=== PATIENT | male | born 1955 | race Caucasian/White ===

== ENCOUNTER → 2024-03-11 07:36 | Outpatient (REF) | payer OTHER, SELFPAY | LOC: EMG 07:36 | PROVIDERS: ATTENDING PHYSICIAN Psychiatry & Neurology Neurology; FAMILY PHYSICIAN Family Medicine | DX: R20.0 Anesthesia of skin (principal) | CPT/HCPCS: 95886; 95912 ==

== ENCOUNTER → 2024-03-12 07:33 | Outpatient (REF) | payer OTHER, SELFPAY | LOC: EMG 07:33 | PROVIDERS: ATTENDING PHYSICIAN Psychiatry & Neurology Neurology; FAMILY PHYSICIAN Family Medicine | DX: R20.0 Anesthesia of skin (principal) | CPT/HCPCS: 95886; 95910 ==

== ENCOUNTER 2024-04-19 09:13 | Emergency (ER) | payer OTHER, SELFPAY ==
[2024-04-19 09:18] VITALS: BP 171/95
[2024-04-19 09:47] LABS: ALT (SGPT) 36 U/L (0-50); AST (SGOT) 46 U/L (17-59); Alkaline Phosphatase 77 U/L (38-126); Blood Urea Nitrogen 19 mg/dl (9-20); Calcium 8.5 mg/dl (8.4-10.2); Carbon Dioxide 27 mmol/L (22-30); Chloride 102 mmol/L (98-107); Glucose 137 mg/dl (70-99); Potassium 4.4 mmol/L (3.5-5.1); Sodium 137 mmol/L (135-145); Total Bilirubin 0.5 mg/dl (0.2-1.3); Total Protein 7.1 g/dl (6.3-8.2); eGFR > 60.00
[2024-04-19 09:55] LABS: % Basophils 0.3 % (0-2); % Eosinophils 0.9 % (0-6); % Immature Granulocytes 0.2 % (0-0.5); % Lymphocytes 40.9 % (20.5-51.1); % Monocytes 7.7 % (1.7-9.3); Absolute Eosinophils 0.1 10^3/uL (0-0.7); Absolute Lymphocytes 2.3 10^3/uL (1.2-3.4); Absolute Monocytes 0.4 10^3/uL (0.1-0.6); Absolute Neutrophils 2.9 10^3/uL (1.4-6.5); Hemoglobin 12.6 g/dL (13.0-18.0); Mean Corpuscular Hgb 21.2 pg (27.0-31.0); Mean Corpuscular Volume 70.8 fL (80.0-94.0); Mean Platelet Volume 8.6 fL (7.4-10.4); Nucleated Red Blood Cells % 0 % (-); Platelet Count 327 10^3/uL (130-400); Red Blood Cell Count 5.93 10^6/uL (4.70-6.10); Red Cell Dist. Width 15.6 % (11.5-14.5); White Blood Cell Count 5.7 10^3/uL (4.8-10.8)
[2024-04-19 10:03] VITALS: BMI 28.7
[2024-04-19 10:06] VITALS: BP 165/85
--- NOTE | 2024-04-19 10:23 | ED.GENMED ---
History of Present Illness
General
Chief Complaint: Dizziness
Source: patient
Exam Limitations: none
Time Seen by Provider: 04/19/24 09:54
Travel History
Have you had any contact with someone who has COVID-19?: No
Do you have any symptoms of coronavirus? Fever > 100 degrees, chills, cough, shortness of breath, sore throat, loss of taste or smell, muscle aches, or headache?: No
History of Present Illness
History of Present Illness:
69-year-old male with history of hypertension hyperlipidemia presents with the onset of dizziness overnight last night. He states he rolled over in bed from his left side to his right side and he had a significant spinning sensation with nausea.
He sat still and it went away. He did this again later in the morning and similar symptoms occurred. He notes that his dizziness is made worse with position change and tends to fade away if he stays still. He notes a slight headache. He had a
viral rash several days ago. No fevers chest pain shortness of breath abdominal pain. No unilateral numbness or weakness.
Phy Exam
Physical Exam
Physical Exam:
General: Well-appearing male no acute respiratory distress
HEENT: Normocephalic atraumatic right external auditory canal occluded with cerumen left external auditory canal and TM are normal pupils are equal round reactive to light there is subtle horizontal nystagmus noted upon extraocular motions
Heart: Regular rate and rhythm no murmurs
Lungs: Clear to auscultation bilaterally
Neurologic exam normal gait finger-nose [id number] intact no drift on exam. Pk-Hallpike maneuver with significant dizziness more so on the right. There is notable nystagmus noted in the horizontal direction. This tends to fade after about 10
seconds
Skin: Warm no rash or lesion
Course
Orders/Labs/Results
Orders:
Orders
04/19/24 09:22
EKG [Electrocardiogram (*1)] Urgent
Reason for Study: Vertigo / Dizzy
04/19/24 09:23
EKG- Treatment ONCE
04/19/24 09:29
Complete Blood Count/With Diff Urgent
Comprehensive Metabolic Panel Urgent
04/19/24 10:12
PT Consult [Pt Eval And Treat] Urgent
Treatment: vestibular eval
Activity Level: Ambulate
04/19/24 12:44
Meclizine [Antivert] 25 mg PO NOW STA
Abnormal Lab Results
04/19/24
09:29
Hgb 12.6 L g/dL
(13.0-18.0)
MCV 70.8 L fL
(80.0-94.0)
MCH 21.2 L pg
(27.0-31.0)
MCHC 30.0 L g/dL
(33.0-37.0)
RDW 15.6 H %
(11.5-14.5)
Creatinine 0.6 L mg/dL
(0.7-1.3)
Glucose 137 H mg/dl
(70-99)
04/19/24 09:29
04/19/24 09:29
Vital Signs
Initial and Last Documented VS:
Initial Vital Signs
Temp Pulse Resp BP Pulse Ox
98.4 F 71 18 171/95 98
04/19/24 09:18 04/19/24 09:18 04/19/24 09:18 04/19/24 09:18 04/19/24 09:18
Last Documented Vital Signs
Temp Pulse Resp BP Pulse Ox
98.4 F 71 18 165/85 98
04/19/24 09:18 04/19/24 10:06 04/19/24 10:06 04/19/24 10:06 04/19/24 10:06
MDM/Problems Addressed
Differential Diagnosis Includes:
Patient with dizziness. Seems to be positional. Suspect vertigo peripherally because. No unilateral deficit otherwise. Labs ordered through triage which have been reviewed. Consult physical therapy for vestibular eval
*Critical Care Note
Total Time (30-74mins, 75-104mins- exclusive of procedures): Not Applicable
Update Note
Update Note:
Patient evaluated by physical therapy they agree with this no vertigo they were able to narrow down to the left lateral canal. They feel he would benefit from outpatient vestibular rehab. He was given meclizine here. He is stable for discharge.
Do not suspect CVA
ED Attending Note
-
Portions of this chart may have been created with voice recognition software.� Occasional wrong word or��sound alike� substitutions may have occurred due to the inherent limitations of voice recognition software.
Discharge Plan
Departure
Patient Disposition: Home (Routine Discharge)
Date of Disposition: 04/19/24
Time of Disposition: 12:45
Patient with high blood pressure during this ER visit?: No
Discharge Problem:
Vertigo
Instructions: Vertigo (a Type of Dizziness) (DC)
Prescriptions:
New
meclizine 25 mg tablet
25 mg PO TID PRN (Reason: dizziness) Qty: 10 0RF
Activity Restrictions/Additional Instructions:
Use meclizine if needed for dizziness. Please follow-up with vestibular therapist for further treatment. If worse otherwise
Interventions
Interventions:
*Risk Screen - Suicide Last Done: 04/19/24 09:18
*General Assessment Last Done: 04/19/24 09:18
*Neglect/Abuse Screening Last Done: 04/19/24 09:18
ED- Fall Risk Assessment Last Done: 04/19/24 10:03
*ED COVID-19 Vaccine History Last Done: 04/19/24 09:18
ED- Neurological Assessment Last Done: 04/19/24 10:03
ED- Cardiac Assessment Last Done: 04/19/24 10:05
Discharge Date and Time
Print Language: LATVIAN
[2024-04-19 11:14] VITALS: BP 165/85; PULSE 66; O2SAT 97
[2024-04-19] MEDS: ANTIVERT 25 MG PO (12:54)
== END 2024-04-19 13:17 | disposition home or self-care (01) ==
LOC: EMR 09:13
PROVIDERS: Emergency Medicine; EMERGENCY PHYSICIAN Emergency Medicine; FAMILY PHYSICIAN Internal Medicine
DX: R42 Dizziness and giddiness (principal); I10 Essential (primary) hypertension; E78.5 Hyperlipidemia, unspecified
CPT/HCPCS: 99284; 80053; 85025; 93005

== ENCOUNTER 2024-04-29 06:37 | Outpatient (RCR) | payer OTHER, SELFPAY | END 2024-04-29 23:59 | disposition home or self-care (01) | LOC: RPT 06:37 | PROVIDERS: ATTENDING PHYSICIAN Internal Medicine | DX: R42 Dizziness and giddiness (principal); Z73.6 Limitation of activities due to disability | CPT/HCPCS: 97112; 97161 ==

== ENCOUNTER → 2024-10-29 11:13 | Outpatient (REF) | payer OTHER, SELFPAY | LOC: HWRAD 11:13 | PROVIDERS: ATTENDING PHYSICIAN Internal Medicine | DX: M75.32 Calcific tendinitis of left shoulder (principal); W19.XXXA Unspecified fall, initial encounter | CPT/HCPCS: 73030; 73564 ==

== ENCOUNTER → 2024-12-30 07:21 | Outpatient (REF) | payer OTHER, SELFPAY | LOC: HWRAD 07:21 | PROVIDERS: ATTENDING PHYSICIAN Internal Medicine | DX: D50.9 Iron deficiency anemia, unspecified (principal); E87.5 Hyperkalemia; R74.8 Abnormal levels of other serum enzymes | CPT/HCPCS: 76700 ==

== ENCOUNTER → 2025-08-26 14:14 | Outpatient (REF) | payer OTHER, SELFPAY | LOC: HWRAD 14:14 | PROVIDERS: ATTENDING PHYSICIAN Internal Medicine; REFERRING PHYSICIAN Psychiatry & Neurology Neurology | DX: K11.8 Other diseases of salivary glands (principal) | CPT/HCPCS: 76536 ==

== ENCOUNTER → 2025-09-18 09:53 | Outpatient (REF) | payer OTHER, SELFPAY ==
[2025-09-18 10:04] VITALS: BP 147/83; BP_SYST 82
== END ==
LOC: RADI 09:53
PROVIDERS: ATTENDING PHYSICIAN Internal Medicine
DX: K11.8 Other diseases of salivary glands (principal)
CPT/HCPCS: 42400; 76942; 88173; 88305; 88341; 88342